=== PATIENT | female | born 1990 | race Caucasian/White ===

== ENCOUNTER → 2017-02-21 | Outpatient (CLI) | payer OTHER | LOC: FIMAGING 15:29 | PROVIDERS: ATTEND Physician Assistant Medical | DX: Z30.431 Encounter for routine checking of intrauterine contraceptive device (principal); N92.6 Irregular menstruation, unspecified ==

== ENCOUNTER → 2017-09-27 | Outpatient (CLI) | payer OTHER | LOC: FIMAGING 14:46 | PROVIDERS: ATTEND Family Medicine | DX: N63.24 Unspecified lump in the left breast, lower inner quadrant (principal) ==